=== PATIENT | male | born 1975 | race African-American/Black ===

== ENCOUNTER 2018-09-02 14:49 | Emergency (ER) | payer MEDICAID ==
[~2018-09-02] VITALS: Ht 180.3 cm; Wt 88.0 kg
[~2018-09-02 14:49] MED LIST: [UNRECOGNIZED DRUG - REMARK]
[2018-09-02] MEDS: ACETAMINOPHEN 500MG TABLET PO ONE (16:35)
[2018-09-02] MEDS: LABETALOL 5MG/ML SYR 20 MG/4 ML SYRINGE IV ONE (17:04)
[2018-09-02] MEDS: MORPHINE SULFATE 4 MG/ML CPJ (NOT FOR IM USE) IV STA (17:04)
[2018-09-02] MEDS: ONDANSETRON HCL 4MG/2ML INJ IV STA (17:05)
[2018-09-02 17:11] LABS: BASOPHILS % 1.3 % (0.0-2.0); EOSINOPHILS % 1.3 % (0.0-5.0); HEMATOCRIT. 52.2 % (42.0-52.0); LYMPHOCYTES % 37.2 % (20.0-50.0); MEAN CORPUSCULAR HEMOGLOBIN 30.6 pg (28.0-32.0); MEAN CORPUSCULAR VOLUME 88.8 fL (80.0-94.0); MEAN PLATELET VOLUME 7.5 fl (7.4-10.4); MONOCYTES % 10.3 % (2.0-8.0); NEUTROPHILS % 49.9 % (40.0-76.0); PLATELET 262 x1000/uL (130-400); RED BLOOD CELL COUNT 5.88 mill/uL (4.7-6.1); RED CELL DISTRIBUTION WIDTH 13.7 % (11.6-14.6)
[2018-09-02 17:13] LABS: CHLORIDE 104 mEq/L (98-107)
[2018-09-02 17:14] LABS: INR 1.1
[2018-09-02 17:18] LABS: CLARITY URINE CLEAR (CLEAR); COLOR URINE YELLOW (YELLOW); KETONES URINE TRACE (NEGATIVE); LEUKOCYTE ESTERASE URINE NEGATIVE (NEGATIVE); NITRITE URINE NEGATIVE (NEGATIVE); OCCULT BLOOD URINE NEGATIVE (NEGATIVE); PROTEIN URINE NEGATIVE (NEGATIVE); SPECIFIC GRAVITY URINE 1.024 (1.005-1.030)
[2018-09-02 17:48] LABS: *AMPHETAMINES SCREEN URINE NEGATIVE (NEGATIVE); *BARBITURATES SCREEN URINE NEGATIVE (NEGATIVE); *BENZODIAZEPINES SCREEN URINE NEGATIVE (NEGATIVE); *COCAINE SCREEN URINE NEGATIVE (NEGATIVE); OPIATES URINE SCREEN NEGATIVE (NEGATIVE); PHENCYCLIDINE URINE SCREEN NEGATIVE (NEGATIVE)
[2018-09-02 17:49] LABS: CANNABINOID URINE SCREEN PRESUMTIVE POSITIVE (NEGATIVE)
[2018-09-02 17:50] LABS: METHADONE URINE SCREEN NEGATIVE (NEGATIVE)
[2018-09-02 18:42] VITALS: BP 189/99
[2018-09-02] MEDS ORDERED: IOHEXOL-350 100 ML BOTTLE ONE (18:45)
== END 2018-09-02 18:45 | disposition home or self-care (01) ==
LOC: ER 14:49
DX: M54.6 Pain in thoracic spine (principal); F17.210 Nicotine dependence, cigarettes, uncomplicated; I10 Essential (primary) hypertension
CPT/HCPCS: 36415; 71045; 71275; 80053; 80305; 81003; 83690; 83880; 84484; 85025; 85610; 93005; 96374; 96375; 99284; 99406; J2270; J2405; J3490; Q9967